=== PATIENT | male | born 1930 | race Caucasian/White ===

== ENCOUNTER 2016-08-05 04:38 | Inpatient (IN) | payer OTHER ==
[~2016-08-05] VITALS: Ht 177.8 cm; Wt 78.0 kg
--- NOTE | 2016-08-05 04:50 | NUR ---
PT BIBA FROM HOME C/O EXACERBATION OF CHRONIC BACK PAIN, RT SHOULDER, RT LEG PAIN AND HEADACHE S/P FALL WHILE WALKING BACK FROM THE BATHROOM AT 0300 THIS AM. TAKES PLAVIX. PT STATES HE WAS NOT DIZZY, DENIES LOC "I JUST LOST MY BALANCE" ALL NEUROS INTACT. DR DONATO IN TO EVAL PT ON PT ARRIVAL TO ED. HAS TRACE SWELLING TO FOREHEAD
--- NOTE | 2016-08-05 04:52 | ED MVC/FALL/TRAUMA COMPLAINT ---
History of Present Illness General Chief Complaint: Fall Stated Complaint: "BIBA FALL" Source: patient, EMS Exam Limitations: no limitations Vital Signs & Intake/Output Vital Signs & Intake/Output Vital Signs Date Time Temp Pulse Resp B/P Pulse O2 O2 Flow FiO2 Ox Delivery Rate 08/05 1055 97.8 85 20 179/83 96 Room Air 08/05 0848 97.0 70 18 142/80 96 Room Air 08/05 0755 96.9 74 18 178/79 96 Room Air 08/05 0443 96.8 75 18 175/81 97 Room Air Allergies Coded Allergies: NO KNOWN ALLERGIES (08/05/16) Triage Nurses Notes Reviewed? yes HPI: Patient presents for evaluation of injury sustained status post fall at about 3: 00 this morning. Patient states he was getting up to use the bathroom when he tripped and fell. He states he landed on his right side and also thinks he may have hit his head. Of consciousness or neck pain. He does have chronic back pain that seems to have been aggravated by the fall. In addition he is describing a moderate to severe right shoulder pain that gets worse with movement. The pain is a sharp stabbing pain. (TANMAY HUYNH,CASH Hidalgo) Reconcile Medications Amlodipine/Atorvastatin (Amlodipine-Atorvast 5-20 MG) 5 MG-20 MG TABLET 1 TAB PO DAILY HEART HEALTH (Reported) Aspirin (Ecotrin*) 81 MG TABLET.DR 1 TAB PO EOD HEART HEALTH (Reported) Clopidogrel Bisulfate (Clopidogrel) 75 MG TABLET 1 TAB PO EOD BLOOD THINNER ( Reported) Cyclobenzaprine HCl 10 MG TABLET 1 TAB PO TID PAIN CONTROL (Reported) Diazepam (Valium) 5 MG TABLET 1 TAB PO Q6P PRN muscle strain/spasm Escitalopram Oxalate 20 MG TABLET 1 TAB PO DAILY MENTAL HEALTH (Reported) Fenofibric Acid (Choline) (Fenofibric Acid) 135 MG CAPSULE.DR 1 CAP PO DAILY HEART HEALTH (Reported) Finasteride 5 MG TABLET 1 TAB PO DAILY HEART HEALTH (Reported) Hydrocodone/Acetaminophen (Vicodin 5-300 MG Tablet) 5 MG-300 MG TABLET 0.5-1 TAB PO Q8P PRN PAIN SCALE 7-10 (SEVERE) (Reported) Ibuprofen 600 MG TABLET 1 TAB PO Q6PRN PRN pain with food Lansoprazole 30 MG CAPSULE.DR 1 CAP PO DAILY ACID REFLUX (Reported) Levothyroxine Sodium (Synthroid) 50 MCG TABLET 1 TAB PO DAILY THYROID HEALTH (Reported) Methylprednisolone 4 MG TAB.DS.PK 2 TAB PO 08/04/16 PAIN CONTROL (Reported) TAKE 1 TABLET 4/2 Montelukast Sodium 10 MG TABLET 1 TAB PO DAILY ALLERGIES (Reported) Oxycodone HCl/Acetaminophen (Percocet 5-325 MG Tablet) 5 MG-325 MG TABLET 1 TAB PO Q6P PRN severe pain Potassium Chloride 10 MEQ TAB.ER.PRT 1 TAB PO DAILY ELECTROLYTES (Reported) Tamsulosin HCl 0.4 MG CAP.ER.24H 1 CAP PO DAILY URINE FLOW (Reported) (TYLER HUYNH,OCHOA) Past History Travel History Traveled to [place] past 21 day No Medical History Any Pertinent Medical History? see below for history Cardiovascular: CAD, hypertension, hyperlipidemia, myocardial infarction Musculoskeletal: chronic back pain Psychiatric: anxiety, depression, PTSD Endocrine: hypothyroidism Cancer(s): VOICE BOX Pneumonia Vaccine: 02/03/13 Influenza Vaccine: 02/03/15 Surgical History Surgical History: non-contributory Psychosocial History Who do you live with Spouse Services at Home None What is your primary language [place]ib[place]ian Tobacco Use: Quit >30 days ago ETOH Use: occasional use Illicit Drug Use: denies illicit drug use Family History Hx Contributory? No (TANMAY HUYNH,CASH Hidalgo) Review of Systems Review of Systems Constitutional: Reports: no symptoms. Eyes: Reports: no symptoms. Ears, Nose, Throat, Mouth: Reports: no symptoms. Respiratory: Reports: no symptoms. Cardiovascular: Reports: no symptoms. Gastrointestinal/Abdominal: Reports: no symptoms. Genitourinary: Reports: no symptoms. Musculoskeletal: Reports: see HPI. Skin: Reports: no symptoms. Neurological/Psychological: Reports: no symptoms. All Other Systems: Reviewed and Negative (TANMAY HUYNH,CASH Hidalgo) Physical Exam Physical Exam General Appearance: SEE BELOW Comments: Gen.: Well-nourished, well-developed, no acute respiratory distress. Head: Normocephalic, atraumatic, nontender. Question of slight soft tissue swelling to the left of the left brow. Eyes: Normal inspection bilaterally, argenis, EOMI Ears: Normal inspection bilaterally Nose: Normal inspection Throat/mouth : Moist mucosa Neck: Supple, full range of motion, no goiter, nontender Heart: Regular rate and rhythm, no murmurs rubs or gallops Lungs: Clear to auscultation bilaterally with normal air entry Chest: Nontender Back: Normal range of motion, nontender Abdomen: Soft, nontender, nondistended, normal bowel sounds Pelvis: Stable and nontender Extremities: Right upper extremity: Tenderness of the right shoulder to palpation and range of motion, the right upper extremity is otherwise neurovascularly intact. Lower extremity examination is nontender. Neurologic: Cranial nerves grossly intact, speech is clear Skin: warm and dry and without ecchymoses or soft tissue swelling or erythema Psychiatric: Calm, cooperative, no apparent delusions or hallucinations Core Measures ACS in differential dx? No Severe Sepsis Present: No Septic Shock Present: No (TANMAY HUYNH,CASH Hidalgo) Progress Differential Diagnosis: HEAD, c-SPINE, MUSCULOSKELETAL TRAUMA Plan of Care: Orders Procedure Date/time Status Heart Healthy Diet 08/05 L Active URINALYSIS 08/05 1027 Active MAGNESIUM 08/05 1027 Active COMPREHENSIVE METABOLIC PANEL 08/05 1027 Active CBC WITHOUT DIFFERENTIAL 08/05 1027 Active CASE MANAGEMENT CONSULT 08/05 0940 Active PT Evaluate & Treat 08/05 0902 Active Gait Training, 15 Min 08/05 UNK Complete PT EVAL MOD COMPLEX 30 MIN 08/05 UNK Complete Comments: 08/05/2016 6:09:37 AM according to patient's nurse, he is returning from CAT scan a second time due to inability to lie flat. This even after subcutaneous morphine. I have ordered Toradol and Ativan. 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 (TANMAY HUYNH,CASH Hidalgo) Diagnostic Imaging: Viewed by Me: Radiology Read, CT Scan. Discussed w/RAD: Radiology Read, CT Scan. Radiology Impression: No acute lumbar spine fracture identified. Multilevel degenerative changes described. Status post vertebroplasty/kyphoplasty L3 and L4., No evidence of acute fracture or effusion of the right knee. Degenerative change as described. No evidence of acute fracture or dislocation of the right shoulder. Calcific tendinitis. Degenerative change as described., No acute intracranial pathology., Multilevel cervical spondylosis as described. No acute cervical spine fracture. Comments: PT eval for gait/discharge: safe for discharge home with rolling walker. Case management consult for home care needs and assistance with ADLs. (TYLER HUYNH,OCHOA) Departure Departure Condition: Stable Departure Forms: Customer Survey General Discharge Information (TANMAY HUYNH,CASH Hidalgo) Departure Time of Disposition: 1117 Disposition: HOME OR SELF CARE Clinical Impression Primary Impression: Fall Qualifiers: Encounter type: initial encounter Qualified Code: W19.XXXA - Unspecified fall, initial encounter Secondary Impressions: Acute low back pain due to trauma Contusion Qualifiers: Encounter type: initial encounter Contusion area: head Contusion of head detail: unspecified part of head Qualified Code: S00.93XA - Contusion of unspecified part of head, initial encounter Head injury due to trauma Qualifiers: Encounter type: initial encounter Qualified Code: S09.90XA - Unspecified injury of head, initial encounter Referrals: LOWELL HUYNH,DAMON Pathak (PCP/Family) LISE HUYNH,LIZBETH Manzano Additional Instructions: Take either hydrocodone or oxycodone Take either cyclobenazprine or valium Prescriptions: Current Visit Scripts Oxycodone HCl/Acetaminophen (Percocet 5-325 MG Tablet) 1 TAB PO Q6P PRN severe pain #15 TAB Diazepam (Valium) 1 TAB PO Q6P PRN muscle strain/spasm #30 TAB Ref 1 Ibuprofen 1 TAB PO Q6PRN PRN pain #50 TAB with food (TYLER HUYNH,OCHOA)
[2016-08-05] MEDS ORDERED: CYCLOBENZAPRINE10 M1 PO ×2 (04:56→13:59)
[2016-08-05] MEDS ORDERED: VICODIN 5-3001 EACH PO ×2 (04:57→13:59)
[2016-08-05] MEDS ORDERED: METHYLPREDNISOLO4 M2 PO ×2 (04:59→13:59)
[2016-08-05] MEDS ORDERED: LANSOPRAZOLE30 M2 PO (05:02)
[2016-08-05] MEDS ORDERED: FENOFIBRIC ACI135 M1 PO (05:03)
[2016-08-05] MEDS ORDERED: ESCITALOPRAM OX20 MG PO (05:03)
[2016-08-05] MEDS ORDERED: POTASSIUM CHLO10 ME5 PO (05:05)
[2016-08-05] MEDS ORDERED: CLOPIDOGREL75 M1 PO (05:06)
[2016-08-05] MEDS ORDERED: ASPIRIN EC81 M1 PO (05:07)
[2016-08-05] MEDS ORDERED: AMLODIPINE-ATO1 EAC7 PO (05:08)
[2016-08-05] MEDS ORDERED: TAMSULOSIN HCL0.4 M1 PO (05:08)
[2016-08-05] MEDS ORDERED: MONTELUKAST SOD10 M1 PO (05:09)
[2016-08-05] MEDS ORDERED: FINASTERIDE5 M1 PO (05:09)
[2016-08-05] MEDS ORDERED: SYNTHROID50 MCG PO (05:09)
--- NOTE | 2016-08-05 05:12 | NUR ---
PT TO AND FROM CT, COULD NOT TOLERATE BEING FLAT ON CT TABLE. DR DONATO AWARE CT IMAGES NOT DONE AT THIS TIME
--- NOTE | 2016-08-05 05:23 | NUR ---
PT MEDICATED WITH 4 MG MORPHINE SC ORDERED
--- NOTE | 2016-08-05 06:28 | NUR ---
PT TO AND FROM CT AGAIN. STILL COULD NOT TOLERATE LYING FLAT. MEDICATED WITH 15 MG TOARADOL AND 0.5 MG ATIVAN IM PER DR DONATO
--- NOTE | 2016-08-05 07:15 | NUR ---
PT TO RAD/CAT SCAN VIA STRETCHER.
--- NOTE | 2016-08-05 07:51 | CT SCAN REPORT ---
EXAMINATION: CT HEAD WITHOUT CONTRAST CLINICAL INFORMATION: Status post fall with head strike COMPARISON: December 18, 2013 TECHNIQUE: Contiguous axial imaging was performed from the skull base to vertex without intravenous administration of contrast. DLP: 242.97 mGy-cm FINDINGS: There is no evidence of acute intracranial hemorrhage or territorial infarction. No abnormal mass effect or midline shift is seen. Pearl to white matter differentiation is well preserved. No extra-axial fluid collections are identified. The ventricles are normal in size. There is mild periventricular white matter low density consistent with small vessel disease. There appears to be an old right lamina papyracea fracture. The mastoid air cells and visualized portions of the paranasal sinuses are well aerated. IMPRESSION: No acute intracranial pathology.
--- NOTE | 2016-08-05 08:02 | NUR ---
BACK FROM CAT SCAN.
--- NOTE | 2016-08-05 08:09 | CT SCAN REPORT ---
EXAMINATION: CT CERVICAL SPINE WITHOUT CONTRAST CLINICAL INFORMATION: Trauma COMPARISON: April 04, 2012 TECHNIQUE: CT cervical spine without intrathecal contrast DLP: 357.74 mGy-cm FINDINGS: No abnormal prevertebral soft tissue swelling is seen. No paraspinal muscle inflammatory changes noted. No acute cervical spine fracture is seen. Multilevel anterior degenerative spurring is present C2-C7. There is a mild anterolisthesis C5 on C6 by approximately 2 mm. There is severe disc space narrowing at least C6-C7 level. Spurring of the joints of Luschka at the C5-C6 and C6-C7 levels are present causing some anterior neural foramina encroachment most significant at the C6-C7 level. There is degenerative narrowing and spurring about the anterior arch of C1 and the odontoid process. Pterygoid plates are intact. Visualized paranasal sinuses unremarkable. Lung apical pleural-parenchymal scarring is present. IMPRESSION: Multilevel cervical spondylosis as described. No acute cervical spine fracture.
--- NOTE | 2016-08-05 08:40 | CT SCAN REPORT ---
EXAMINATION: CT LUMBAR SPINE WITHOUT CONTRAST CLINICAL INFORMATION: Fall with back pain COMPARISON: April 04, 2012 TECHNIQUE: Helical non-contrast CT images were obtained through the lumbar spine and 1.25 and 2.5 mm axial reconstructions were reviewed along with sagittal and coronal MPRs. DLP: 1141.87 mGy-cm FINDINGS: No abnormal inflammatory change or collections are seen in the prevertebral soft tissues or paraspinal muscles. There is osteopenia visualized bones. There are 5 nonrib bearing lumbar vertebra. No acute lumbar spine fracture is evident. There are stable mild compression fractures involving the L3 and L4 vertebral bodies with patient being status post what appears to be a kyphoplasty at the L4 level and vertebroplasty at the L3 level. There is moderate degenerative narrowing of the L5-S1 disc space with vacuum disc phenomena. Anterior longitudinal ligament calcifications are seen at multiple levels. No spondylolisthesis or spondylolysis identified. Degenerative change of the sacroiliac joints seen bilaterally with spurring and what appears to be some degree of fusion superiorly bilaterally.. IMPRESSION: No acute lumbar spine fracture identified. Multilevel degenerative changes described. Status post vertebroplasty/kyphoplasty L3 and L4.
--- NOTE | 2016-08-05 08:52 | RADIOLOGY REPORT ---
EXAMINATION: XR SHOULDER, RIGHT and right knee CLINICAL INFORMATION: Fall with pain COMPARISON: None TECHNIQUE: 4 views of the right shoulder and 5 views of the right knee FINDINGS: There is no evidence of acute fracture or dislocation of the right knee. No right knee effusion is seen. Patient status post old healed proximal right fibular fracture. Prominent patella spur site of insertion of the quadriceps tendon. There is moderate medial joint space compartment narrowing. A few calcifications are seen anteriorly just inferior to the patella along the lateral soft tissues. These do not appear to be within the joint space. There is no evidence of acute fracture or dislocation of the right shoulder. There is calcific tendinitis present. Degenerative spurring about the acromioclavicular joint is present. No widening of the coracoclavicular space is seen. The vertebral head appears to be riding superiorly within the glenohumeral joint suspicious for possible rotator cuff tear. There is some mild spurring about the glenohumeral joint. IMPRESSION: No evidence of acute fracture or effusion of the right knee. Degenerative change as described. No evidence of acute fracture or dislocation of the right shoulder. Calcific tendinitis. Degenerative change as described.
--- NOTE | 2016-08-05 08:55 | NUR ---
AWAITING DISPO/POC. RESTING ON STRETCHER. AT BEDSIDE.
--- NOTE | 2016-08-05 09:09 | NUR ---
PT AMBULATED WITH ROLLING WALKER GAIT SLOW STEADY PT WENT SHORT DISTANCE THEN STATES "I CAN'T WALK ANYMORE MY RIGHT LEG IS GIVING OUT". PT AMBULATED BACK TO ROOM APPROX. 10 FEET.
--- NOTE | 2016-08-05 09:30 | NUR ---
AWAITING PHYSICAL THERAPY.
--- NOTE | 2016-08-05 10:01 | NUR ---
LUNCH TRAY ORDERED
--- NOTE | 2016-08-05 10:34 | NUR ---
PT AT BEDSIDE FOR EVALUATION
--- NOTE | 2016-08-05 10:41 | NUR ---
APT REFUSED BLOOD
[2016-08-05] MEDS ORDERED: PERCOCET 5-3251 EACH PO (11:20)
[2016-08-05] MEDS ORDERED: IBUPROFEN600 M1 PO (11:20)
[2016-08-05] MEDS ORDERED: VALIUM5 M2 PO (11:20)
--- NOTE | 2016-08-05 11:50 | NUR ---
CONTINUING CARE AT BEDSIDE.
--- NOTE | 2016-08-05 12:20 | NUR ---
UPON DISCHARGING PT. PT NOTED TO BE UNSTEADT ON FEET. PT HAVING DIFFICULT TIME JUST STANDING. AND DAUGHTER DO NOT FEEL SAFE BRINGING PT HOME. DR SCOTT AWARE.
--- NOTE | 2016-08-05 12:45 | NUR ---
PT PLACED IN [facility] COAT. PLACED IN [place]AVANA CHAIR FOR COMFORT. AWARE OF ADMISSION PROCESS. Informed waiting has been performed. IV EST.
[2016-08-05 12:56] LABS: ABSOLUTE BASOPHIL COUNT 0 /CUMM (0.0-0.2); ABSOLUTE EOSINOPHIL COUNT 0.2 /CUMM (0.0-0.7); ABSOLUTE GRANULOCYTE CT 4.3 /CUMM (1.4-6.5); ABSOLUTE LYMPH COUNT 1.2 /CUMM (1.2-3.4); ABSOLUTE MONOCYTE COUNT 0.8 /CUMM (0.10-0.60); BASOPHIL % 0.6 % (0.0-2.0); EOSINOPHIL % 2.6 % (0-5); GRANULOCYTE % 66.6 % (42.2-75.2); HEMATOCRIT 40.1 % (42-52); MEAN CORPUSCULAR HGB 31.1 PG (27.0-31.0); MEAN CORPUSCULAR HGB CONC 33.4 G/DL (33.0-37.0); MEAN CORPUSCULAR VOLUME 93.3 FL (80.0-94.0); MEAN PLATELET VOLUME 9.6 FL (7.4-10.4); PLATELET COUNT 134 /CUMM (130-400); RBC DISTRIBUTION WIDTH 13.4 % (11.5-14.5); WHITE BLOOD CELL COUNT 6.5 /CUMM (4.8-10.8)
--- NOTE | 2016-08-05 13:41 | NUR ---
DR CHRISTINE AT BEDSIDE.
--- NOTE | 2016-08-05 13:50 | NUR ---
HOUSESTAFF AT BEDSIDE FOR EVAL.
--- NOTE | 2016-08-05 14:07 | Admission Certification ---
Admission Certification Certification Statement - As attending physician, I certify that at the time of - admission, based on clinical presentation, severity of - symptoms, need for further diagnostic testing and - therapeutic interventions, and risk of adverse outcomes - without in-hospital treatment, in my clinical assessment, - this patient requires an acute hospital stay for a minimum - of two nights or longer. I have also considered psychsocial - factors such as support system, advanced age, financial - issues, cognitive issues, and failed out-patient treatments, - past re-admission history, safety of patient, and lack of - compliance as applicable. Specific rationale supporting this admission is: Mechanical fall , unable to walk, delirium from pain medication, hypertension
--- NOTE | 2016-08-05 14:08 | NUR ---
PHARMACY CALLED FOR MEDS
--- NOTE | 2016-08-05 14:11 | PN- Att Addend ---
Attending Addendum Attending Brief Note 86-year-old white male comes to the emergency room after a mechanical fall tripping around 3:00 in the morning. Previously per , has been dealing with back pains seen the orthopedic and some pain medications and muscle relaxants in the ER had workup and x-rays pain medication and was ready to be discharged and was unable to walk and the pain was still there despite the pain medication has made him very drowsy and may be hallucinating he thought I was one of his friends his blood pressure is elevated he did not take his medication this morning and will admit monitor his pain try to find the medication I help him without side effects and have orthopedic reevaluate the patient in the morning also PT evaluation patient may need short-term rehabilitation Vital Signs Date Time Temp Pulse Resp B/P Pulse O2 O2 Flow FiO2 Ox Delivery Rate 08/05 1302 98.0 84 20 196/83 99 Room Air 08/05 1238 80 180/90 08/05 1055 97.8 85 20 179/83 96 Room Air 08/05 0848 97.0 70 18 142/80 96 Room Air 08/05 0755 96.9 74 18 178/79 96 Room Air 08/05 0443 96.8 75 18 175/81 97 Room Air Laboratory Tests 08/05/16 1235: Anion Gap 7, Estimated GFR 45 L, BUN/Creatinine Ratio 20.0, Glucose 107 H, Serum Osmolality Pending, Calcium 10.0, Magnesium 2.0, Total Bilirubin 0.7, AST 24, ALT 30, Alkaline Phosphatase 36, Total Protein 6.9, Albumin 4.3, Globulin 2.6, Albumin/Globulin Ratio 1.7, CBC w Diff NO MAN DIFF REQ, RBC 4.30 L, MCV 93.3, MCH 31.1 H, RDW 13.4, MPV 9.6, Gran % 66.6, Lymphocytes % 17.7 L, Monocytes % 12.5 H, Eosinophils % 2.6, Basophils % 0.6, Absolute Granulocytes 4.3, Absolute Lymphocytes 1.2, Absolute Monocytes 0.8 H, Absolute Eosinophils 0.2, Absolute Basophils 0, PUBS MCHC 33.4 Orders Procedure Date/time Status Heart Healthy Diet 08/05 L Complete Regular Diet 08/05 D Active Pathway - chart 08/05 1406 Active Add-on Test (ER Only) 08/05 1345 Active URINE OSMOLALITY 08/05 1345 Active URINE LYTES, SPOT 08/05 1345 Active OXYGEN SETUP (GEN) 08/05 1328 Active Saline Lock 08/05 1328 Active Admit to inpatient 08/05 1328 Active Vital Signs 08/05 1328 Active Activity/Ambulation 08/05 1328 Active Code Status 08/05 1328 Active Patient Data 08/05 1321 Active EKG 08/05 1248 Active SERUM OSMOLALITY 08/05 1235 Active URINALYSIS 08/05 1027 Active MAGNESIUM 08/05 1027 Active COMPREHENSIVE METABOLIC PANEL 08/05 1027 Active CBC WITHOUT DIFFERENTIAL 08/05 1027 Complete CASE MANAGEMENT CONSULT 08/05 0940 Active PT Evaluate & Treat 08/05 0902 Active Intake & Output 08/05 0454 Active Gait Training, 15 Min 08/05 UNK Complete PT EVAL MOD COMPLEX 30 MIN 08/05 UNK Complete
--- NOTE | 2016-08-05 14:20 | NUR ---
PT HAS BED ASSIGNMENT 204-2. RN NOTIFIED.
--- NOTE | 2016-08-05 14:29 | NUR ---
REPORT TO RN ON 2NB.
--- NOTE | 2016-08-05 14:43 | NUR ---
PT GIVEN FLOMAX RESIDENT CHANGED TIME TO 1700 PT HAS RECEIVED TODAYS DOSE
--- NOTE | 2016-08-05 14:50 | NUR ---
PT TO FLOOR VIA STRETCHER. ALL PAPERWORK AND BELONGINGS SENT WITH PT. CLINICAL STATUS UNCHANGED. AT BEDSIDE WITH PT.
--- NOTE | 2016-08-05 15:27 | History & Physical ---
General Information and HPI MD Statement: I have seen and personally examined BARRY LAFLEUR and documented this H&P. The patient is a 86 year old M who presented with a patient stated chief complaint of [fall]. Source of Information: patient, family Exam Limitations: no limitations History of Present Illness: 86-year-old male with past medical history of CAD/stents in 1980s, on antiplatelets, hypertension, hyperlipidemia, RI, chronic back pain, throat cancer, recurrent falls position of the ED from home after sustaining a fall at home this morning. Patient woke up from his bed and wanted to uses restroom, lost balance/felt dizzy and fell on the right side along with hitting his head. Patient's and daughter were present during the interview. Patient's reports that he did not loose consciousness, he was awake and oriented to surroundings, did not have any seizures or any bleeding noticed. He has had multiple falls over the last 5 years. Patient describes that he feels dizzy and the next moment he sees himself in the ground. Denies chest pain, palpitations, chest pressure, sweating, headaches, vision changes during these episodes. He uses walker and cane at home to walk. His last stress test was a year ago which is normal according to the patient's family. He follows Dr. Umair Dubose. He was recently seen by his primary care physician and was given Flexeril, Percocet and a Medrol Dosepak for back pain which patient hasn't started any. Patient has been having recurrent falls over the last 5 years. Had physical therapy in the past. ADLs, IADLs independent except for driving and use his walker and cane to walk. ED course: Patient was supposed to be discharged home this morning. But felt extremely weak and was delirious and hence decision was made to admit him. He received Ativan and 4 mg of morphine in the ED. Allergies/Medications Allergies: Coded Allergies: NO KNOWN ALLERGIES (UNKNOWN 08/06/16) Home Med list Amlodipine/Atorvastatin (Amlodipine-Atorvast 5-20 MG) 5 MG-20 MG TABLET 1 TAB PO DAILY HEART HEALTH (Reported) Aspirin (Ecotrin*) 81 MG TABLET. 1 TAB PO EOD HEART HEALTH (Reported) Clopidogrel Bisulfate (Clopidogrel) 75 MG TABLET 1 TAB PO EOD BLOOD THINNER ( Reported) Cyclobenzaprine HCl 10 MG TABLET 1 TAB PO TID BACK PAIN (Reported) Escitalopram Oxalate 20 MG TABLET 1 TAB PO DAILY MENTAL HEALTH (Reported) Finasteride 5 MG TABLET 1 TAB PO DAILY HEART HEALTH (Reported) Hydrocodone/Acetaminophen (Vicodin 5-300 MG Tablet) 5 MG-300 MG TABLET 1 TAB PO Q4-6 PRN BACK PAIN (Reported) Lansoprazole 30 MG CAPSULE.DR 1 CAP PO DAILY ACID REFLUX (Reported) Levothyroxine Sodium (Synthroid) 50 MCG TABLET 1 TAB PO DAILY THYROID HEALTH (Reported) Methylprednisolone 4 MG TAB.DS.PK 1 TAB PO DAILY BACK PAIN (Reported) Montelukast Sodium 10 MG TABLET 1 TAB PO DAILY ALLERGIES (Reported) Potassium Chloride 10 MEQ TAB.ER.PRT 1 TAB PO DAILY ELECTROLYTES (Reported) Tamsulosin HCl 0.4 MG CAP.ER.24H 1 CAP PO DAILY URINE FLOW (Reported) Past History Travel History Traveled to [place] past 21 day No Medical History EENT: allergies Cardiovascular: CAD, hypertension, hyperlipidemia, myocardial infarction Gastrointestinal: GERD Renal: benign prost hyperplasia Musculoskeletal: chronic back pain Psychiatric: anxiety, depression, PTSD Endocrine: hypothyroidism Cancer(s): VOICE BOX Pneumonia Vaccine: 02/03/13 Influenza Vaccine: 02/03/15 Surgical History Surgical History: appendectomy, cholecystectomy, khypoplasty Past Family/Social History Family History Relations & Conditions if any Relation not specified for: *No pertinent family history Psychosocial History Where do you live? Home Who Do You Live With? spouse Services at Home: None Smoking Status: Former Smoker ETOH Use: occasional use Illicit Drug Use: denies illicit drug use Living Will? no Functional Ability ADLs Independent: dressing, eating, toileting, bathing. Ambulation: cane, walker IADLs Independent: shopping, housework, finances, food prep, telephone, medication admin. Employment History Employment Retired Review of Systems Review of Systems Constitutional: Reports: see HPI. Exam & Diagnostic Data Last 24 Hrs of Vital Signs/I&O Vital Signs Date Time Temp Pulse Resp B/P Pulse O2 O2 Flow FiO2 Ox Delivery Rate 08/05 1435 99.0 80 20 142/78 08/05 1434 99.0 80 20 142/78 08/05 1429 99.0 80 142/78 08/05 1302 98.0 84 20 196/83 99 Room Air 08/05 1238 80 180/90 08/05 1055 97.8 85 20 179/83 96 Room Air 08/05 0848 97.0 70 18 142/80 96 Room Air 08/05 0755 96.9 74 18 178/79 96 Room Air 08/05 0443 96.8 75 18 175/81 97 Room Air Intake & Output 08/05 1600 08/05 0800 04 0000 Intake Total 0 Output Total Balance 0 Intake, Oral 0 Patient 172 lb Weight Physical Exam General Appearance Alert, Cooperative, No Acute Distress Skin No Rashes HEENT Atraumatic, PERRLA, EOMI, Mucous Membr. moist/pink Neck Supple Cardiovascular Regular Rate, Normal S1, Normal S2, No Murmurs Lungs Clear to Auscultation, Normal Air Movement Abdomen Normal Bowel Sounds, Soft, No Tenderness Neurological Normal Speech, Strength at 5/5 X4 Ext, Normal Tone, Sensation Intact, Reflexes 2+ Extremities No Clubbing, No Cyanosis, No Edema Last 24 Hrs of Labs/Dominik: Laboratory Tests 08/05/16 1235: Anion Gap 7, Estimated GFR 45 L, BUN/Creatinine Ratio 20.0, Glucose 107 H, Serum Osmolality 286, Calcium 10.0, Magnesium 2.0, Total Bilirubin 0.7, AST 24, ALT 30, Alkaline Phosphatase 36, Total Protein 6.9, Albumin 4.3, Globulin 2.6, Albumin/Globulin Ratio 1.7, CBC w Diff NO MAN DIFF REQ, RBC 4.30 L, MCV 93.3, MCH 31.1 H, RDW 13.4, MPV 9.6, Gran % 66.6, Lymphocytes % 17.7 L, Monocytes % 12.5 H, Eosinophils % 2.6, Basophils % 0.6, Absolute Granulocytes 4.3, Absolute Lymphocytes 1.2, Absolute Monocytes 0.8 H, Absolute Eosinophils 0.2, Absolute Basophils 0, PUBS MCHC 33.4 Diagnostic Data EKG Results NSR with T wave flattening in lead V5,V6 Assessment/Plan Assessment: Assessment and plan 86-year-old male with history of recurrent falls, CAD/stents presents to the ED with sustaining a fall this morning was likely due to weakness. Imaging studies done in the ED did show evidence of degenerative joint disease, but no fractures detected 1. History of recurrent falls could be due to orthostatic hypotension vs weakness of the lower extremities: EKG does not show evidence of arrhythmias. Will admit patient to general medical floor - We will check his orthostatic vitals - Obtain PT in a.m. - UA is pending to rule out infection - He may be benefited by additional vitamin D 1000 units daily 2. Hyponatremia: Patient appears euvolemic -we will check serum and urine osmolarity along with lites 3. CKD: appears to be at baseline. -We will avoid NSAIDs or other nephrotoxic agents 4. CAD/stents on antiplatelets -Patient takes aspirin and Plavix every other day which we will continue 5. Hypertension: His blood pressure was elevated and 170s in the ED most likely due to pain along with not taking his regular medications: -We will restart his home medication and control pain adequately -Repeat blood pressure check in the ED was 130s manually 6. Back pain: - Appears that patient is highly sensitive to even minimal dose for narcotics -we will be cautious on his pain medications --We will start him on Lidoderm patch and by mouth nightly Tylenol for pain. 7. Delirium: Could be secondary to medications he received - No evidence of constipation or infection seen ( although UA pending) - He is reorients with conversation - Will intervene with non-pharmacological modalities control delirium Full CODE STATUS DVT prophylaxis with subcutaneous heparin As Ranked By This Provider Problem List: 1. Fall Qualifiers Encounter type: initial encounter Qualified Code: W19.XXXA - Unspecified fall, initial encounter 2. Acute low back pain due to trauma 3. Recurrent falls Core Measures/Miscellaneous Acute Coronary Syndrome ACS Diagnosis: No Cerebrovascular Accident CVA/TIA Diagnosis: No Congestive Heart Failure CHF Diagnosis: No Venous Thromboembolism VTE Risk Factors: Age > 40 No [facility] VTE prophylaxis d/t: No contraindications No VTE Pharm Prophylaxis d/t: No contraindications VTE Diagnosis: No VTE Type: NONE VTE Confirmed by (Test): NONE Severe Sepsis Severe Sepsis Present: No Septic Shock Septic Shock Present: No Miscellaneous Documentation Attending Case Discussed With: Nicki HUYNH Primary Care Physician: DAMON ETIENNE MD Patient sees these Specialists Cardiology, orthopedic Level of Patient Care: General Medicine
[2016-08-05 16:48] VITALS: BP 158/90
--- NOTE | 2016-08-05 18:59 | NUR ---
LATE ENTRY: PATIENT ARRIVED TO FLOOR AT 1500 FROM THE ED VIA STETCHER. AT BEDSIDE. PATIENT STATES BACK PAIN IS 10/10. PATIENT SLEEPY BUT AROUSABLE. ACCORDING TO , THE MORPHINE AND ATIVAN GIVEN IN THE ED MADE PATIENT VERY DROWSY. O2 SAT IS 98% ON ROOM AIR, RESP 16. DUE TO PAIN PATIENT HAS LIMITED MOVEMENT OF ARMS AND LEGS. VSS. TYLENOL 650 MG GIVEN FOR PAIN WHICH DID HELP. MD CONNELLY MADE AWARE. PATIENT GIVEN TORDOL WHICH SEEMED TO WORK BETTER. CALL DONATO WITHIN REACH, BED ALARM ON. AT BEDSIDE.
[2016-08-05 22:32] VITALS: BP 160/84
[2016-08-06 06:02] VITALS: BP 150/82
[2016-08-06 07:09] VITALS: BP 150/82
--- NOTE | 2016-08-06 09:16 | PN- Housestaff ---
Subjective Follow-up For: Recurrent falls, weakness Subjective: Patient today comfortably in bed, no acute distress. Still complains of back pain and right shoulder pain. Currently on IV and by mouth Tylenol and Lidoderm patch with moderate relief Denies chest pain, palpitations, dizziness. Complains of constipation and having difficulty in urination Review of Systems Constitutional: Reports: see HPI. Objective Last 24 Hrs of Vital Signs/I&O Vital Signs Date Time Temp Pulse Resp B/P Pulse O2 O2 Flow FiO2 Ox Delivery Rate 08/06 0709 97.9 70 20 150/82 96 / 0602 150/82 04/ 2232 97.6 72 20 160/84 95 04/ 1648 97.9 82 20 158/90 98 Room Air 04/ 1435 99.0 80 20 142/78 04/ 1434 99.0 80 20 142/78 04/ 1429 99.0 80 142/78 / 1302 98.0 84 20 196/83 99 Room Air / 1238 80 180/90 04/ 1055 97.8 85 20 179/83 96 Room Air Intake & Output 08/06 1600 08/06 0800 04/ 0000 Intake Total 360 500 Output Total 425 400 Balance -65 100 Intake, Oral 360 500 Output, Urine 425 400 Patient 172 lb Weight Physical Exam General Appearance: Alert, Oriented X3, Cooperative, No Acute Distress Skin: No Rashes Cardiovascular: Regular Rate, Normal S1, Normal S2, No Murmurs Lungs: Clear to Auscultation Abdomen: Normal Bowel Sounds, Soft, No Tenderness Extremities: No Clubbing, No Cyanosis, No Edema Current Medications: Current Medications Sig/Herbert Start time Last Medication Dose Route Stop Time Status Admin Acetaminophen 650 MG Q6P PRN 08/05 1415 AC 08/06 PO 0522 Acetaminophen 1,000 MG Q6P PRN 08/05 1415 AC 08/06 IV 0116 Alteplase, 2 MG ONE ONE 08/06 1000 UNVr Recombinant IV 08/06 1001 Alteplase, 2 MG ONE ONE 08/06 1000 UNVr Recombinant IV 08/06 1001 Amlodipine Besylate 5 MG DAILY 08/05 1415 AC 08/06 PO 0840 Aspirin Buffered 81 MG Q48@1000 08/06 1000 AC 08/06 PO 0832 Atorvastatin Calcium 20 MG 1700 08/05 1700 AC 08/05 PO 1830 Cholecalciferol 1,000 IU DAILY 08/05 1439 AC 08/06 PO 0832 Clopidogrel Bisulfate 75 MG .[EOD] 08/05 1415 DC PO Clopidogrel Bisulfate 75 MG Q48 08/05 1400 AC 08/05 PO 1434 Escitalopram Oxalate 20 MG DAILY 08/05 1415 08/06 PO 0840 Finasteride 5 MG DAILY 08/05 1402 AC 08/06 PO 0840 Heparin Sodium 5,000 UNIT Q8 08/05 2200 AC 08/06 (Porcine) SC 0420 Ketorolac 30 MG ONCE ONE 08/06 0415 DC 08/06 Tromethamine IV 08/06 0416 0417 Ketorolac 30 MG ONCE ONE 08/05 2014 DC 08/05 Tromethamine IV 08/05 Ketorolac 30 MG ONCE ONE 08/05 1645 DC 08/05 Tromethamine IV 08/05 1646 1643 Levothyroxine Sodium 0.05 MG DAILY 08/06 1000 DC 08/06 PO 0832 Levothyroxine Sodium 0.05 MG 0600 08/06 0600 PO Lidocaine 2 PAT Q24H PRN 08/05 1415 08/05 EXT 1441 Montelukast Sodium 10 MG DAILY 08/05 1403 08/06 PO 0840 Patient Medication 1 UNIT ONE NR 08/06 0830 Teaching ED 08/06 1430 Senna/Docusate Sodium 2 TAB DAILY 08/06 1000 AC PO Tamsulosin HCl 0.4 MG DAILY 08/05 1700 AC 08/06 PO 0831 Tamsulosin HCl 0.4 MG DAILY 08/05 1403 DC 08/05 PO 1435 Tramadol HCl 50 MG Q8P PRN 08/06 0830 08/06 PO 0832 Last 24 Hrs of Lab/Dominik Results Last 24 Hrs of Labs/Mics: Laboratory Tests 08/06/16 0628: Anion Gap 9, Estimated GFR 48 L, BUN/Creatinine Ratio 21.4 08/05/16 1542: Urine Osmolality 662, Ur Random Creatinine 162.6, Ur Random Sodium 99 H, Ur Random Potassium 50.9, Fraction Sodium Excret 0.7 08/05/16 1541: Urine Color YEL, Urine Clarity CLEAR, Urine pH 6.0, Ur Specific Thornton 1.020, Urine Protein 30 H, Urine Ketones NEG, Urine Nitrite NEG, Urine Bilirubin NEG, Urine Urobilinogen 0.2, Ur Leukocyte Esterase NEG, Ur Microscopic SEDIMENT EXAMINED, Urine RBC RARE, Ur Epithelial Cells RARE, Urine Bacteria FEW H, Hyaline Casts 1-3 H, Urine Mucus FEW, Urine Hemoglobin TRACE-INTACT H, Urine Glucose NEG 08/05/16 1235: Anion Gap 7, Estimated GFR 45 L, BUN/Creatinine Ratio 20.0, Glucose 107 H, Serum Osmolality 286, Calcium 10.0, Magnesium 2.0, Total Bilirubin 0.7, AST 24, ALT 30, Alkaline Phosphatase 36, Total Protein 6.9, Albumin 4.3, Globulin 2.6, Albumin/Globulin Ratio 1.7, CBC w Diff NO MAN DIFF REQ, RBC 4.30 L, MCV 93.3, MCH 31.1 H, RDW 13.4, MPV 9.6, Gran % 66.6, Lymphocytes % 17.7 L, Monocytes % 12.5 H, Eosinophils % 2.6, Basophils % 0.6, Absolute Granulocytes 4.3, Absolute Lymphocytes 1.2, Absolute Monocytes 0.8 H, Absolute Eosinophils 0.2, Absolute Basophils 0, PUBS MCHC 33.4 Assessment/Plan Assessment: 86-year-old male with history of recurrent falls, CAD/stents presents to the ED with sustaining a fall this morning was likely due to weakness. Imaging studies done in the ED did show evidence of degenerative joint disease, but no fractures detected 1. History of recurrent falls could be due to orthostatic hypotension vs weakness of the lower extremities: - We will check his orthostatic vitals - Obtain PT - UA did not show evidence of infection -We'll continue 1000 vitamin D daily 2. Euvolemic Hyponatremia: - Serum osmolarity within normal limits - Urine osmolarity appears to be on the higher side - 3. CKD: appears to be at baseline. -We will avoid NSAIDs or other nephrotoxic agents 4. CAD/stents on antiplatelets -Patient takes aspirin and Plavix every other day which we will continue 5. Hypertension: - The normal limits, will continue his home medication 6. Back pain: - Still has significant back pain in spite of Lidoderm patches on IV and by mouth Tylenol -we will start him on tramadol every 6 - Unfortunately he is very sensitive to narcotics, hence would avoid narcotics and him 7. Delirium: - Resolved today, no evidence of infection seen - we will start him on a bowel regimen to prevent constipation - Will avoid possible delirium treatments Full CODE STATUS DVT prophylaxis with subcutaneous heparin Problem List: 1. Fall 2. Recurrent falls 3. Acute low back pain due to trauma Pain Ratin Pain Location: Back, right shoulder Pain Goal: Pain 4 or less Pain Plan: As mentioned Tomorrow's Labs & Rationales: Will need labs to check sodium
--- NOTE | 2016-08-06 09:30 | PN- Att Addend ---
Attending Addendum Attending Brief Note Patient complains of persistent right shoulder and hip pain. Otherwise he is well alert and oriented. General Appearance: Alert, No Acute Distress Skin: Grossly normal HEENT: PEERLA Neck: Supple, No JVD Cardiovascular: Regular Rate, Normal S1, Normal S2, No Murmurs Lungs: Clear to Auscultation, Normal Air Movement Abdomen: Normal Bowel Sounds, Soft, No Tenderness Neurological: Normal Speech, Strength at 5/5 X4 Ext, Cranial Nerves 3-12 NL, Reflexes 2+ Extremities: Right shoulder tenderness Vascular: Normal Pulses Assessment 86-year-old with mechanical fall and no fractures on x-ray including lumbosacral , knees and shoulders. He had an episode of delirium secondary to pain meds as listed morphine. This morning on evaluation he is alert and awake in the delirium seemed to have resolved. We will continue to monitor on Ultram for 24 hours and see his response rate in the meantime get a PT evaluation and plan for STR placement. Patient reports 6 falls over last 1-1/2 years. Plan Ultram 50 mg every 6 hour when necessary severe pain Tylenol every 6 hours for [id number] pain PT evaluation Continue other home meds DVT prophylaxis Current Medications Sig/Herbert Start time Last Medication Dose Route Stop Time Status Admin Acetaminophen 650 MG Q6P PRN 08/05 1415 AC 08/06 PO 0522 Acetaminophen 1,000 MG Q6P PRN 08/05 1415 AC 08/06 IV 0116 Amlodipine Besylate 5 MG DAILY 08/05 1415 AC 08/06 PO 0840 Aspirin Buffered 81 MG Q48@1000 / 1000 AC 08/06 PO 0832 Atorvastatin Calcium 20 MG 1700 08/05 1700 AC 08/05 PO 1830 Cholecalciferol 1,000 IU DAILY 08/05 1439 AC / PO 0832 Clopidogrel Bisulfate 75 MG .[EOD] 08/05 1415 DC PO Clopidogrel Bisulfate 75 MG Q48 / 1400 AC 08/05 PO 1434 Escitalopram Oxalate 20 MG DAILY 08/05 1415 AC 08/06 PO 0840 Finasteride 5 MG DAILY 08/05 1402 AC 08/06 PO 0840 Heparin Sodium 5,000 UNIT Q8 08/05 2200 AC 08/06 (Porcine) SC 0420 Ketorolac 30 MG ONCE ONE 08/06 0415 DC 08/06 Tromethamine IV 08/06 0416 0417 Ketorolac 30 MG ONCE ONE 08/05 2014 DC 08/05 Tromethamine IV 08/05 Ketorolac 30 MG ONCE ONE 08/05 164 DC 08/05 Tromethamine IV 08/05 1646 1643 Levothyroxine Sodium 0.05 MG DAILY 08/06 1000 DC 08/06 PO 0832 Levothyroxine Sodium 0.05 MG 0600 08/06 0600 AC PO Lidocaine 2 PAT Q24H PRN 08/05 1415 AC 08/05 EXT 1441 Montelukast Sodium 10 MG DAILY 08/05 1403 AC 08/06 PO 0840 Patient Medication 1 UNIT ONE NR 08/06 0830 AC Teaching ED 08/06 1430 Senna/Docusate Sodium 2 TAB DAILY 08/06 1000 AC PO Tamsulosin HCl 0.4 MG DAILY 08/05 1700 AC 08/06 PO 0831 Tamsulosin HCl 0.4 MG DAILY 08/05 1403 DC 08/05 PO 1435 Tramadol HCl 50 MG Q8P PRN 08/06 0830 AC 08/06 PO 0832 Laboratory Tests 08/06 08/05 08/05 0628 1542 1541 Chemistry Sodium (137 - 145 mmol/L) 130 L Potassium (3.5 - 5.1 mmol/L) 4.2 Chloride (98 - 107 mmol/L) 97 L Carbon Dioxide (22 - 30 mmol/L) 24 Anion Gap (5 - 16) 9 BUN (9 - 20 mg/dL) 30 H Creatinine (0.7 - 1.2 mg/dL) 1.4 H Estimated GFR (>60 ml/min) 48 L BUN/Creatinine Ratio (7 - 25 %) 21.4 Urines Urine Color (YEL,AMB,STR) YEL Urine Clarity (CLEAR) CLEAR Urine pH (5.0 - 8.0) 6.0 Ur Specific Dolores (1.001 - 1.035) 1.020 Urine Protein (NEG,<30 MG/DL) 30 H Urine Ketones (NEG) NEG Urine Nitrite (NEG) NEG Urine Bilirubin (NEG) NEG Urine Urobilinogen (0.1 - 1.0 EU/dl) 0.2 Ur Leukocyte Esterase (NEG) NEG Ur Microscopic SEDIMENT EXAMINED Urine RBC (0 - 5 /HPF) RARE Ur Epithelial Cells (NONE,FEW) RARE Urine Bacteria (NEG/NONE) FEW H Hyaline Casts (0/LPF) 1-3 H Urine Mucus (FEW,NONE) FEW Urine Hemoglobin (NEG) TRACE-INTACT H Urine Osmolality (300 - 1000 MOSM/KG) 662 Ur Random Creatinine (mg/dL) 162.6 Ur Random Sodium (30 - 90 mmol/L) 99 H Ur Random Potassium (mmol/L) 50.9 Fraction Sodium Excret (<1% %) 0.7 Urine Glucose (N MG/DL) NEG 08/05 1235 Chemistry Sodium (137 - 145 mmol/L) 132 L Potassium (3.5 - 5.1 mmol/L) 4.2 Chloride (98 - 107 mmol/L) 99 Carbon Dioxide (22 - 30 mmol/L) 26 Anion Gap (5 - 16) 7 BUN (9 - 20 mg/dL) 30 H Creatinine (0.7 - 1.2 mg/dL) 1.5 H Estimated GFR (>60 ml/min) 45 L BUN/Creatinine Ratio (7 - 25 %) 20.0 Glucose (65 - 99 mg/dL) 107 H Serum Osmolality (285 - 295 MOSM/KG) 286 Calcium (8.4 - 10.2 mg/dL) 10.0 Magnesium (1.6 - 2.3 mg/dL) 2.0 Total Bilirubin (0.2 - 1.3 mg/dL) 0.7 AST (17 - 59 U/L) 24 ALT (21 - 72 U/L) 30 Alkaline Phosphatase (< 127 U/L) 36 Total Protein (6.3 - 8.2 g/dL) 6.9 Albumin (3.5 - 5.0 g/dL) 4.3 Globulin (1.9 - 4.2 gm/dL) 2.6 Albumin/Globulin Ratio (1.1 - 2.2 %) 1.7 Hematology CBC w Diff NO MAN DIFF REQ WBC (4.8 - 10.8 /CUMM) 6.5 RBC (4.70 - 6.10 /CUMM) 4.30 L Hgb (14.0 - 18.0 G/DL) 13.4 L Hct (42 - 52 %) 40.1 L MCV (80.0 - 94.0 FL) 93.3 MCH (27.0 - 31.0 PG) 31.1 H RDW (11.5 - 14.5 %) 13.4 Plt Count (130 - 400 /CUMM) 134 MPV (7.4 - 10.4 FL) 9.6 Gran % (42.2 - 75.2 %) 66.6 Lymphocytes % (20.5 - 51.1 %) 17.7 L Monocytes % (1.7 - 9.3 %) 12.5 H Eosinophils % (0 - 5 %) 2.6 Basophils % (0.0 - 2.0 %) 0.6 Absolute Granulocytes (1.4 - 6.5 /CUMM) 4.3 Absolute Lymphocytes (1.2 - 3.4 /CUMM) 1.2 Absolute Monocytes (0.10 - 0.60 /CUMM) 0.8 H Absolute Eosinophils (0.0 - 0.7 /CUMM) 0.2 Absolute Basophils (0.0 - 0.2 /CUMM) 0 PUBS MCHC (33.0 - 37.0 G/DL) 33.4 Vital Signs Date Time Temp Pulse Resp B/P Pulse O2 O2 Flow FiO2 Ox Delivery Rate / 0709 97.9 70 20 150/82 96 04/03 0602 150/82 04/02 2232 97.6 72 20 160/84 95 04/02 1648 97.9 82 20 158/90 98 Room Air 04/02 1435 99.0 80 20 142/78 04/02 1434 99.0 80 20 142/78 04/02 1429 99.0 80 142/78 04/02 1302 98.0 84 20 196/83 99 Room Air 04/02 1238 80 180/90 04/02 1055 97.8 85 20 179/83 96 Room Air
--- NOTE | 2016-08-06 10:56 | NUR ---
NURSING NOTE: PT VOIDEED 200ML CLEAR URINE IN URINAL; BLADDER SCAN AFTER FOR 75ML. 372 AWARE. PT STATES "I PEED, I FEEL FINE"
[2016-08-06 14:33] VITALS: BP 160/80
--- NOTE | 2016-08-06 15:14 | Discharge Summary ---
See Addendum Visit Information Visit Dates Admission Date: 08/05/16 Discharge Date: 08/07/16 Hospital Course Course Attending Physician: ESTER ATKINS MD Primary Care Physician: DAMON ETIENNE MD Hospital Course: 86-year-old male with past medical history of CAD/stents in , on antiplatelets, hypertension, hyperlipidemia, HI, chronic back pain, throat cancer, recurrent falls position of the ED from home after sustaining a fall at home this morning. Vitals and admission: Blood pressure 170/81, respiration 18, pulse is 75, temperature 96.8, oxygen saturation 97% on room air. Labs and admission WBC 6.5, hemoglobin 13.4, hematocrit 40.1, platelets 134, sodium 132, potassium 4.2, chloride 99, bicarbonate 26, BUN 30, creatinine 1.[address] cervical spine without IV contrast showed multilevel cervical spondylosis 2. Head CT without IV contrast showed no intracranial pathology either 3. X-ray knee showed no evidence of acute fracture or effusion of the right knee. Degenerative changes noted 4. Right shoulder x-ray showed no evidence of acute fracture or dislocation of the right shoulder 5. CT lumbar spine without IV contrast showed no acute lumbar spine fracture identified Hospital course 1. Recurrent falls due to weakness and imbalance: Patient was admitted to general medical floor. He was initially given morphine and Ativan in the ED which may patient delerious. He was started on IV and by mouth Tylenol, tramadol long with Lidoderm patches which controlled his pain to a moderate level. Patient was evaluated by physical therapy who recommended home PT. 2. Delirium likely due to narcotics which resolved on day 2 of admission. Narcotics and opiates were avoided and patient remained stable. 3. Euvolemic Hyponatremia: Most likely due to CKD 4. Chronic kidney disease stage III: At baseline. 5. Hypertension: His continued on his home medication 6. CAD/stents Patient takes aspirin and Plavix every other day which was continued Full CODE STATUS DVT prophylaxis with subcutaneous heparin Allergies: Coded Allergies: NO KNOWN ALLERGIES (UNKNOWN 08/06/16) Pertinent Lab Results: Laboratory Tests 08/06 08/05 08/05 0628 [id number] Chemistry Sodium (137 - 145 mmol/L) 130 L Potassium (3.5 - 5.1 mmol/L) 4.2 Chloride (98 - 107 mmol/L) 97 L Carbon Dioxide (22 - 30 mmol/L) 24 Anion Gap (5 - 16) 9 BUN (9 - 20 mg/dL) 30 H Creatinine (0.7 - 1.2 mg/dL) 1.4 H Estimated GFR (>60 ml/min) 48 L BUN/Creatinine Ratio (7 - 25 %) 21.4 Urines Urine Color (YEL,AMB,STR) YEL Urine Clarity (CLEAR) CLEAR Urine pH (5.0 - 8.0) 6.0 Ur Specific [place] (1.001 - 1.035) 1.020 Urine Protein (NEG,<30 MG/DL) 30 H Urine Ketones (NEG) NEG Urine Nitrite (NEG) NEG Urine Bilirubin (NEG) NEG Urine Urobilinogen (0.1 - 1.0 EU/dl) 0.2 Ur Leukocyte Esterase (NEG) NEG Ur Microscopic SEDIMENT EXAMINED Urine RBC (0 - 5 /HPF) RARE Ur Epithelial Cells (NONE,FEW) RARE Urine Bacteria (NEG/NONE) FEW H Hyaline Casts (0/LPF) 1-3 H Urine Mucus (FEW,NONE) FEW Urine Hemoglobin (NEG) TRACE-INTACT H Urine Osmolality (300 - 1000 MOSM/KG) 662 Ur Random Creatinine (mg/dL) 162.6 Ur Random Sodium (30 - 90 mmol/L) 99 H Ur Random Potassium (mmol/L) 50.9 Fraction Sodium Excret (<1% %) 0.7 Urine Glucose (N MG/DL) NEG 08/05 1235 Chemistry Sodium (137 - 145 mmol/L) 132 L Potassium (3.5 - 5.1 mmol/L) 4.2 Chloride (98 - 107 mmol/L) 99 Carbon Dioxide (22 - 30 mmol/L) 26 Anion Gap (5 - 16) 7 BUN (9 - 20 mg/dL) 30 H Creatinine (0.7 - 1.2 mg/dL) 1.5 H Estimated GFR (>60 ml/min) 45 L BUN/Creatinine Ratio (7 - 25 %) 20.0 Glucose (65 - 99 mg/dL) 107 H Serum Osmolality (285 - 295 MOSM/KG) 286 Calcium (8.4 - 10.2 mg/dL) 10.0 Magnesium (1.6 - 2.3 mg/dL) 2.0 Total Bilirubin (0.2 - 1.3 mg/dL) 0.7 AST (17 - 59 U/L) 24 ALT (21 - 72 U/L) 30 Alkaline Phosphatase (< 127 U/L) 36 Total Protein (6.3 - 8.2 g/dL) 6.9 Albumin (3.5 - 5.0 g/dL) 4.3 Globulin (1.9 - 4.2 gm/dL) 2.6 Albumin/Globulin Ratio (1.1 - 2.2 %) 1.7 Hematology CBC w Diff NO MAN DIFF REQ WBC (4.8 - 10.8 /CUMM) 6.5 RBC (4.70 - 6.10 /CUMM) 4.30 L Hgb (14.0 - 18.0 G/DL) 13.4 L Hct (42 - 52 %) 40.1 L MCV (80.0 - 94.0 FL) 93.3 MCH (27.0 - 31.0 PG) 31.1 H RDW (11.5 - 14.5 %) 13.4 Plt Count (130 - 400 /CUMM) 134 MPV (7.4 - 10.4 FL) 9.6 Gran % (42.2 - 75.2 %) 66.6 Lymphocytes % (20.5 - 51.1 %) 17.7 L Monocytes % (1.7 - 9.3 %) 12.5 H Eosinophils % (0 - 5 %) 2.6 Basophils % (0.0 - 2.0 %) 0.6 Absolute Granulocytes (1.4 - 6.5 /CUMM) 4.3 Absolute Lymphocytes (1.2 - 3.4 /CUMM) 1.2 Absolute Monocytes (0.10 - 0.60 /CUMM) 0.8 H Absolute Eosinophils (0.0 - 0.7 /CUMM) 0.2 Absolute Basophils (0.0 - 0.2 /CUMM) 0 PUBS MCHC (33.0 - 37.0 G/DL) 33.4 Disposition Summary Disposition Principal Diagnosis: 1. Recurrent fall 2. Back pain Additional Diagnosis: HTN CAD/stents Discharge Disposition: home health services Discharge Instructions General Discharge Information Code Status: Full Code Patient's Diet: Heart healthy diet Patient's Activity: 1. As tolerated with PT Follow-Up Instructions/Appts: 1. Follow-up with primary care physician a week upon discharge. 2. Be cautious while getting up. Uses walker at all times Medications at Discharge Discharge Medications: Stop taking the following medications: Methylprednisolone (Methylprednisolone) 4 MG TAB.DS.PK ORAL DAILY Qty = 21 Cyclobenzaprine HCl (Cyclobenzaprine HCl) 10 MG TABLET ORAL THREE TIMES DAILY Qty = 40 Hydrocodone/Acetaminophen (Vicodin 5-300 MG Tablet) 5 MG-300 MG TABLET ORAL EVERY 4-6 HOURS as needed for BACK PAIN Continue taking these medications: Lansoprazole (Lansoprazole) 30 MG CAPSULE.DR 1 Capsule ORAL DAILY Qty = 90 Comments: NOT GIVEN IN HOSPITAL Escitalopram Oxalate (Escitalopram Oxalate) 20 MG TABLET 1 Tablet ORAL DAILY Qty = 90 Comments: Last Taken: 08/07/16 Time: 09:30 AM Potassium Chloride (Potassium Chloride) 10 MEQ TAB.ER.PRT 1 Tablet ORAL DAILY Qty = 90 Comments: NOT GIVEN AT HOSPITAL Clopidogrel Bisulfate (Clopidogrel) 75 MG TABLET 1 Tablet ORAL Every other day Qty = 45 Comments: Last Taken: 08/07/16 Time: 09:30 AM Aspirin (Ecotrin*) 81 MG TABLET.DR 1 Tablet ORAL Every other day Comments: Last Taken: 08/06/16 Time: 08:30 AM Amlodipine/Atorvastatin (Amlodipine-Atorvast 5-20 MG) 5 MG-20 MG TABLET 1 Tablet ORAL DAILY Qty = 90 Comments: Last Taken: 08/07/16 Time: 09:30 AM Tamsulosin HCl (Tamsulosin HCl) 0.4 MG CAP.ER.24H 1 Capsule ORAL DAILY Qty = 90 Comments: Last Taken: 08/07/16 Time: 09:30 AM Levothyroxine Sodium (Synthroid) 50 MCG TABLET 1 Tablet ORAL DAILY Qty = 90 Comments: Last Taken: 08/07/16 Time: 06:00 AM Montelukast Sodium (Montelukast Sodium) 10 MG TABLET 1 Tablet ORAL DAILY Qty = 90 Comments: Last Taken: 08/07/16 Time: 09:30 AM Finasteride (Finasteride) 5 MG TABLET 1 Tablet ORAL DAILY Qty = 90 Comments: Last Taken: 08/07/16 Time: 09:30 AM Start taking the following new medications: Lidocaine (Lidoderm) 5 % ADH..PATCH 2 Patch ON SKIN Q24H as needed for PAIN Qty = 60 No Refills Tramadol HCl (Tramadol HCl) 50 MG TABLET 50 Milligram ORAL EVERY SIX HOURS NEEDED as needed for PAIN Qty = 30 No Refills Sennosides/Docusate Sodium (Senna Plus Tablet) 8.6 MG-50 MG TABLET 2 Tablet ORAL DAILY as needed for constipation Days = 30 No Refills Cholecalciferol (Vitamin D3) 1,000 UNIT TABLET 1,000 International Unit ORAL DAILY Qty = 30 No Refills Copies To: LOWELL HUYNH,DAMON Pathak
[2016-08-06 22:14] VITALS: BP 125/72
[2016-08-07 06:10] VITALS: BP 140/74
[2016-08-07] MEDS ORDERED: VITAMIN D31000 UNI2 PO (07:46)
--- NOTE | 2016-08-07 07:47 | Patient Discharge Instructions ---
Discharge Instructions General Discharge Information You were seen/treated for: fall and pian in the back Special Instructions: 1. Follow up with your PCP in a week upon ischarge 2. Take tylenol as needed for pain Diet Recommended Diet: Heart Healthy Activity Activity Self Limited: Yes Acute Coronary Syndrome Inclusion Criteria At DC or during hospital stay patient has or had the following: ACS DIAGNOSIS No Discharge Core Measures Meds if any: Prescribed or Continued at Discharge Meds if any: NOT Prescribed or Continued at Discharge Congestive Heart Failure Inclusion Criteria At DC or during hospital stay patient has or had the following: CHF DIAGNOSIS No Discharge Core Measures Meds if any: Prescribed or Continued at Discharge Meds if any: NOT Prescribed or Continued at Discharge Cerebrovascular accident Inclusion Criteria At DC or during hospital stay patient has or had the following: CVA/TIA Diagnosis No Discharge Core Measures Meds if any: Prescribed or Continued at Discharge Meds if any: NOT Prescribed or Continued at Discharge Venous thromboembolism Inclusion Criteria VTE Diagnosis No VTE Type NONE VTE Confirmed by (Test) NONE Discharge Core Measures - Per Current guidelines, there needs to be overlap - treatment for the first 5 days of Warfarin therapy. - If discharged on Warfarin prior to 5 days of - overlap therapy, the patient will need to be - assessed for post discharge needs including - *Post discharge parental anticoagulation - *Warfarin and/or parental anticoagulation education - *Follow up date to check INR post discharge At least 5 days overlap therapy as Inpatient No Meds if any: Prescribed or Continued at Discharge Note: Overlap Therapy is Warfarin and Anticoagulant Meds if any: NOT Prescribed or Continued at Discharge
--- NOTE | 2016-08-07 08:21 | PN- Housestaff ---
Subjective Follow-up For: fall Subjective: Patient appears comfortably resting in the bed. Some discomfort noted when he moves in the bed. denies chest pian, palpitation, dizzness, nausea, vomiting. Was able to walk with PT yesterday and plan is to discharge him with home PT Review of Systems Constitutional: Reports: see HPI. Objective Last 24 Hrs of Vital Signs/I&O Vital Signs Date Time Temp Pulse Resp B/P Pulse O2 O2 Flow FiO2 Ox Delivery Rate 08/07 0610 98.0 62 16 140/74 100 Room Air 08/06 2214 98.0 90 20 125/72 96 08/06 1433 98.1 86 20 160/80 98 Room Air Intake & Output 08/07 1600 08/07 0800 08/07 0000 Intake Total 800 Output Total 700 Balance -700 800 Intake, Oral 800 Number 1 Bowel Movements Output, Urine 700 Physical Exam General Appearance: Alert, Oriented X3, Cooperative, No Acute Distress Skin: No Rashes Cardiovascular: Regular Rate, Normal S1, Normal S2, No Murmurs Lungs: Clear to Auscultation Abdomen: Normal Bowel Sounds, Soft, No Tenderness Neurological: Normal Speech, Sensation Intact Extremities: No Clubbing, No Cyanosis, No Edema Other Physical Findings: tenderness present on the right shoulder. ROM reduced in shoulder and spine associated with pain Current Medications: Current Medications Sig/Herbert Start time Last Medication Dose Route Stop Time Status Admin Acetaminophen 650 MG Q6P PRN 08/05 1415 AC 08/06 PO 0522 Acetaminophen 1,000 MG Q6P PRN 08/05 1415 AC 08/07 IV 0143 Alteplase, 2 MG ONE ONE 08/06 1000 CAN Recombinant IV 08/06 1001 Alteplase, 2 MG ONE ONE 08/06 1000 CAN Recombinant IV 08/06 1001 Amlodipine Besylate 5 MG DAILY 08/05 1415 AC 08/06 PO 0840 Aspirin Buffered 81 MG Q48@1000 08/06 1000 AC 08/06 PO 0832 Atorvastatin Calcium 20 MG 1700 08/05 1700 AC 08/06 PO 1641 Cholecalciferol 1,000 IU DAILY 08/05 1439 AC 08/06 PO 0832 Clopidogrel Bisulfate 75 MG Q48 / 1400 AC 08/05 PO 1434 Docusate Sodium 100 MG DAILY NEEDED PRN 08/06 2200 AC 08/06 PO 2216 Escitalopram Oxalate 20 MG DAILY 08/05 1415 AC 08/06 PO 0840 Finasteride 5 MG DAILY 08/05 1402 AC 08/06 PO 0840 Heparin Sodium 5,000 UNIT Q8 08/05 2200 AC 08/07 (Porcine) SC 0551 Levothyroxine Sodium 0.05 MG DAILY 08/06 1000 DC 08/06 PO 0832 Levothyroxine Sodium 0.05 MG 0600 08/06 0600 AC 08/07 PO 0548 Lidocaine 2 PAT Q24H PRN 08/05 1415 AC 08/06 EXT 1102 Montelukast Sodium 10 MG DAILY 08/05 1403 AC 08/06 PO 0840 Patient Medication 1 ED .STK-MED ONE 08/06 1348 AR Teaching ED 08/06 1349 Patient Medication 1 UNIT ONE NR 08/06 0830 AR Teaching ED 08/06 1430 Senna/Docusate Sodium 2 TAB DAILY 08/06 1000 AC 08/06 PO 1102 Tamsulosin HCl 0.4 MG DAILY 08/05 1700 AC 08/06 PO 0831 Tramadol HCl 50 MG Q6P PRN 08/06 1000 AC 08/06 PO 2158 Tramadol HCl 50 MG Q8P PRN 08/06 0830 DC 08/06 PO 0832 Last 24 Hrs of Lab/Dominik Results Last 24 Hrs of Labs/Mics: Laboratory Tests 08/07/16 0619: Anion Gap 3 L, Estimated GFR 39 L, BUN/Creatinine Ratio 18.2 Assessment/Plan Assessment: 86-year-old male with history of recurrent falls, CAD/stents presents to the ED with sustaining a fall likely due to weakness. Imaging studies done in the ED showed evidence of degenerative joint disease, but no fractures detected 1. History of recurrent falls could be due weakness of the lower extremities associated with generalized pain: -PT recommended home PT - pt has severe OA which is limiting his ability to function normally -Unfortunately NSAIDs are contraindicated because of his dual antipeptic therapy and kidney functions -He has completed Medrol Dosepak with no benefit -Narcotics has severe side effects of delirium in this patient. We are limited with choice of medications for relieving the pain -We will continue Tylenol, Lidoderm patch and tramadol for now -he will follow-up with Dr. Singh on outpatient and discuss about steroid shots 2. Euvolemic Hyponatremia: - Most likely due to chronic disease 3. CKD: appears to be at baseline. -We will avoid NSAIDs or other nephrotoxic agents 4. CAD/stents on antiplatelets -Patient takes aspirin and Plavix every other day which we will continue 5. Hypertension: - The normal limits, will continue his home medication 6. Delirium: - Resolved today Full CODE STATUS DVT prophylaxis with subcutaneous heparin Problem List: 1. Recurrent falls 2. Fall 3. Acute low back pain due to trauma Pain Ratin Pain Location: Shoulder, back Pain Goal: Pain 7 or less Pain Plan: Tylenol, tramadol Tomorrow's Labs & Rationales: Patient to be discharged today
[2016-08-07] MEDS ORDERED: TRAMADOL HCL50 M1 PO (08:54)
[2016-08-07] MEDS ORDERED: SENNA PLUS TAB1 EACH PO (08:54)
[2016-08-07 09:33] VITALS: BP 140/74
--- NOTE | 2016-08-07 09:39 | PN- Att Addend ---
Attending Addendum Attending Brief Note Patient complains of persistent right shoulder and hip pain. Otherwise he is well alert and oriented. General Appearance: Alert, No Acute Distress Skin: Grossly normal HEENT: [place]ERLA Neck: Supple, No JVD Cardiovascular: Regular Rate, Normal S1, Normal S2, No Murmurs Lungs: Clear to Auscultation, Normal Air Movement Abdomen: Normal Bowel Sounds, Soft, No Tenderness Neurological: Normal Speech, Strength at 5/5 X4 Ext, Cranial Nerves 3-12 NL, Reflexes 2+ Extremities: Right shoulder tenderness Vascular: Normal Pulses Assessment 86-year-old with mechanical fall and no fractures on x-ray including lumbosacral , knees and shoulders. He had an episode of delirium secondary to pain meds as listed morphine. This morning on evaluation he is alert and awake in the delirium seemed to have resolved. Stable for discharge home with home physical therapy. Plan Ultram 50 mg every 6 hour when necessary severe pain Tylenol every 6 hours for [id number] pain Stable for discharge on other home meds Current Medications Sig/Herbert Start time Last Medication Dose Route Stop Time Status Admin Acetaminophen 650 MG Q6P PRN 08/05 1415 AC 08/06 PO 0522 Acetaminophen 1,000 MG Q6P PRN 08/05 1415 AC 08/07 IV 0143 Alteplase, 2 MG ONE ONE 08/06 1000 CAN Recombinant IV 08/06 1001 Alteplase, 2 MG ONE ONE 08/06 1000 CAN Recombinant IV 08/06 1001 Amlodipine Besylate 5 MG DAILY 08/05 1415 AC 08/07 PO 0933 Aspirin Buffered 81 MG Q48@1000 / 1000 AC 08/06 PO 0832 Atorvastatin Calcium 20 MG 1700 08/05 1700 AC 08/06 PO 1641 Cholecalciferol 1,000 IU DAILY 08/05 1439 AC 08/07 PO 0933 Clopidogrel Bisulfate 75 MG Q48 08/05 1400 AC 08/07 PO 0933 Docusate Sodium 100 MG DAILY NEEDED PRN 08/06 2200 AC 08/06 PO 2216 Escitalopram Oxalate 20 MG DAILY 08/05 1415 AC 08/07 PO 0932 Finasteride 5 MG DAILY 08/05 1402 AC 08/07 PO 0933 Heparin Sodium 5,000 UNIT Q8 08/05 2200 AC 08/07 (Porcine) SC 0551 Levothyroxine Sodium 0.05 MG DAILY 08/06 1000 DC 08/06 PO 0832 Levothyroxine Sodium 0.05 MG 0600 08/06 0600 AC 08/07 PO 0548 Lidocaine 2 PAT Q24H PRN 08/05 1415 AC 08/06 EXT 1102 Montelukast Sodium 10 MG DAILY 08/05 1403 AC 08/07 PO 0937 Patient Medication 1 ED .STK-MED ONE 08/06 1348 MD Teaching ED 08/06 1349 Patient Medication 1 UNIT ONE NR 08/06 0830 [facility] ED 08/06 1430 Senna/Docusate Sodium 2 TAB DAILY 08/06 1000 AC 08/07 PO 0937 Tamsulosin HCl 0.4 MG DAILY 08/05 1700 AC 08/07 PO 0932 Tramadol HCl 50 MG Q6P PRN 08/06 1000 AC 08/06 PO 2158 Tramadol HCl 50 MG Q8P PRN 08/06 0830 DC 08/06 PO 0832 Laboratory Tests 08/07 0619 Chemistry Sodium (137 - 145 mmol/L) 127 L Potassium (3.5 - 5.1 mmol/L) 4.2 Chloride (98 - 107 mmol/L) 97 L Carbon Dioxide (22 - 30 mmol/L) 27 Anion Gap (5 - 16) 3 L BUN (9 - 20 mg/dL) 31 H Creatinine (0.7 - 1.2 mg/dL) 1.7 H Estimated GFR (>60 ml/min) 39 L BUN/Creatinine Ratio (7 - 25 %) 18.2 Vital Signs Date Time Temp Pulse Resp B/P Pulse O2 O2 Flow FiO2 Ox Delivery Rate 08/07 0933 74 140/74 08/07 0932 74 140/74 08/07 0610 98.0 62 16 140/74 100 Room Air 08/06 2214 98.0 90 20 125/72 96 08/06 1433 98.1 86 20 160/80 98 Room Air
[2016-08-07] MEDS ORDERED: LIDODERM1 EACH EXT ×2 (10:03→10:47)
== END 2016-08-07 11:55 | disposition home health service (06) | DRG 880 ==
LOC: ENRESERVTM → ENRESERVDT → ERH 04:38 → 2NB 13:28 → ENPENDDIS 13:28 → ERHI 13:28 → 2NB 14:54
PROVIDERS: Emergency Medicine; ADMIT Internal Medicine
DX: F05 Delirium due to known physiological condition (principal); E87.1 Hypo-osmolality and hyponatremia; I12.9 Hypertensive chronic kidney disease with stage 1 through stage 4 chronic kidney disease, or unspecified chronic kidney disease; T40.2X5A Adverse effect of other opioids, initial encounter; N18.9 Chronic kidney disease, unspecified; Z91.81 History of falling; F41.8 Other specified anxiety disorders; I25.10 Atherosclerotic heart disease of native coronary artery without angina pectoris; Z95.5 Presence of coronary angioplasty implant and graft
CPT/HCPCS: 2NBSP; 84133; 84300; 36415; 73030-RT; 73562-RT; 81001; 82436; 82570; 93005; 93010; 96372; 97116-GP; 97162-GP; 97164-GP; J0131; J1644; J1885